=== PATIENT | female | born 1950 | race Caucasian/White ===

== ENCOUNTER 2017-05-27 08:36 | Day surgery (SDC) | payer BC, MEDICARE ==
[2017-05-26 13:12] LABS: BASOPHILS % (AUTO) 0.4 % (0-1); EOSINOPHILS # (AUTO) 0.3 X10'3 (0-0.9); HEMATOCRIT 34.1 % (35.0-45.0); HEMOGLOBIN 11.7 g/dl (12.0-16.0); LYMPHOCYTES # (AUTO) 2.7 X10'3 (1.1-4.8); LYMPHOCYTES % (AUTO) 27.3 % (21-51); MEAN CORPUSCULAR HEMOGLOBIN 28.4 PG (27.0-31.0); MEAN CORPUSCULAR HGB CONC 34.3 % (33.0-36.5); MEAN CORPUSCULAR VOLUME 82.9 FL (78-98); MEAN PLATELET VOLUME 7.9 FL (7.4-10.4); MONOCYTES # (AUTO) 0.6 X10'3 (0-0.9); MONOCYTES % (AUTO) 6.6 % (2-12); NEUTROPHILS # (AUTO) 6.2 X10'3 (1.8-7.7); NEUTROPHILS % (AUTO) 62.7 % (42-75); PLATELET COUNT 456 X10'3 (140-440); RED BLOOD COUNT 4.11 X10'6 (4.20-5.60); RED CELL DISTRIBUTION WIDTH 16.1 % (11.5-14.5); WHITE BLOOD COUNT 9.8 X10'3 (4.5-11.0)
[2017-05-26 13:22] LABS: PARTIAL THROMBOPLASTIN TIME 30 SECONDS (22-32); PROTHROMBIN TIME 10.3 SECONDS (9.0-12.0)
[2017-05-26 13:27] LABS: ALANINE AMINOTRANSFERASE 20 U/L (12-78); ALBUMIN 3.1 G/DL (3.4-5.0); ALBUMIN/GLOBULIN RATIO 0.7 (1.1-1.5); ALKALINE PHOSPHATASE 104 IU/L (46-116); ANION GAP 9 (8-16); ASPARTATE AMINO TRANSFERASE 17 U/L (10-37); BILIRUBIN,TOTAL 0.2 MG/DL (0.1-1.0); BLOOD UREA NITROGEN 20 MG/DL (7-18); BUN/CREATININE RATIO 24.1 (6.6-38.0); CALCIUM 9.4 MG/DL (8.5-10.1); CHLORIDE 107 MMOL/L (99-107); CREATININE 0.83 MG/DL (0.40-0.90); GLUCOSE 85 MG/DL (70-104); POTASSIUM 4.1 MMOL/L (3.5-5.1); SODIUM 144 MMOL/L (135-145); TOTAL CARBON DIOXIDE 27.9 MMOL/L (24-32); TOTAL PROTEIN 7.4 G/DL (6.4-8.2); eGFR 69 ML/MIN
[2017-05-27] VITALS (12 sets, daily range): BP systolic 132–171; BP diastolic 62–79
[~2017-05-27] VITALS: Ht 165.1 cm; Wt 69.4 kg
[2017-05-27] MEDS ORDERED: diphenhydrAMINE 25mg capsule PO PRN (08:50)
[2017-05-27] MEDS ORDERED: LORazepam 0.5 MG tablet PO PRN (08:50)
[2017-05-27] MEDS ORDERED: nitroGLYCERIN 0.4mg SUBLingual tab SL PRN (08:50)
[2017-05-27] MEDS ORDERED: normal saline 1000ml 1,000 ML IV SCH ×2 (08:50→12:25)
[2017-05-27] MEDS ORDERED: MELO7.5T12 PO (10:12)
[2017-05-27] MEDS ORDERED: DICL100G15 TOP (10:12)
[2017-05-27] MEDS ORDERED: GABA-532 PO (10:12)
[2017-05-27] MEDS ORDERED: LIDOcaine 1%/PF (10mg/ml) 5ml vial ONE (10:25)
[2017-05-27] MEDS ORDERED: iohexol 350MG/ML 100ml bottle IV ONE (10:25)
[2017-05-27] MEDS ORDERED: iohexol 350 MG/ML 50ML vial IV ONE (10:25)
[2017-05-27] MEDS ORDERED: fentaNYL/PF 50MCG/1 ML 2ML syringe ONE (10:45)
[2017-05-27] MEDS ORDERED: midazolam 2 mg/2 ml injection ONE (10:45)
[2017-05-27] MEDS ORDERED: nitroGLYCERIN-Tridil 50MG/D5W 250 ML IV ONE (11:03)
[2017-05-27] MEDS ORDERED: ondansetron/PF 4mg/2ml inj IV PRN (12:25)
[2017-05-27] MEDS ORDERED: HYDROcodone/acetaminophen 5mg/325mg tablet PO PRN (12:25)
[2017-05-27] MEDS ORDERED: OXAZEpam 15mg capsule PO PRN (12:30)
[2017-05-27] MEDS ORDERED: HYDROcodone/acetaminophen 10/325mg tab PO PRN (12:30)
[2017-05-27] MEDS ORDERED: proCHLORperazine 10 MG/2 ml inj IV PRN (12:30)
[2017-05-27] MEDS ORDERED: pneumococcal 23-VAL P-sac vacc 25 mcg/0.5ml vial IMVAC ONE (18:30)
== END 2017-05-27 18:02 | disposition home or self-care (01) ==
LOC: SSTAY O 08:36
PROVIDERS: ATTEND Internal Medicine Cardiovascular Disease
DX: I25.118 Atherosclerotic heart disease of native coronary artery with other forms of angina pectoris (principal); M35.3 Polymyalgia rheumatica; Z79.1 Long term (current) use of non-steroidal anti-inflammatories (NSAID); Z79.01 Long term (current) use of anticoagulants; Z98.890 Other specified postprocedural states; Z79.899 Other long term (current) drug therapy
CPT/HCPCS: 36415; 71046; 80053; 85025; 85610; 85730; 93458; 99152; 99153; A6257; C1760; C1769; J1644; J2001; J2250; J3010; J3490; J7030; Q0163; Q9967; A4620

== ENCOUNTER 2018-06-02 12:44 | Outpatient (CLI) | payer MEDICARE ==
[~2018-06-02 12:44] MED LIST: DICL100G15 TOP; GABA-532 PO; MELO7.5T12 PO
[2018-06-02 13:10] LABS: ABG BASE EXCESS 0.2 mmol/L (-2.0-3.0); ABG HCO3 24.3 mmol/L (22.0-26.0); ABG OXYGEN SATURATION 95.5 % (95-98); ABG PCO2 (T) 37.4 mmHg (32.0-45.0); ABG PO2 (T) 77.3 mmHg (83-108); ALLEN'S TEST Positive; FCOHb 0.3 % (0.5-1.5); FMetHb 0.2 % (0.3-1.12); TOTAL HEMOGLOBIN 13.5 G/dl (12.0-16.0)
== END 2018-06-02 23:59 | disposition home or self-care (01) ==
LOC: RT 12:44
PROVIDERS: ATTEND Internal Medicine Cardiovascular Disease
DX: R06.02 Shortness of breath (principal); M31.6 Other giant cell arteritis
CPT/HCPCS: 36600; 82803; 85018; 94010; 94727; 94729

== ENCOUNTER 2018-06-08 02:30 | Outpatient (CLI) | payer MEDICARE | END 2018-06-08 23:59 | disposition home or self-care (01) | LOC: RT 02:30 | PROVIDERS: ATTEND Internal Medicine Cardiovascular Disease | DX: R06.02 Shortness of breath (principal); I25.118 Atherosclerotic heart disease of native coronary artery with other forms of angina pectoris; M35.3 Polymyalgia rheumatica; Z79.1 Long term (current) use of non-steroidal anti-inflammatories (NSAID); Z98.890 Other specified postprocedural states; Z79.899 Other long term (current) drug therapy | CPT/HCPCS: 94618 ==